=== PATIENT | male | born 1935 | race African-American/Black ===

== ENCOUNTER → 2016-08-31 | Outpatient (CLI) | payer MEDICARE, OTHER ==
--- NOTE | 2016-09-01 08:36 | XCELERA REPORT ---
[address] [address] Lower Extremity Arterial Evaluation Name: ANTONIO FINCH III Age: 81 yrs Gender: Male : 1935 Patient Status: Outpatient Patient Location: [facility] Study Date: 08/31/2016 10:49 AM Procedure: A color flow and duplex scan of the lower extremity arteries was performed bilaterally with velocity and waveform anaylsis. Ankle brachial indicies performed. Reason For Study: PVD Ordering Physician: MICHAEL TOBAR Performed By: Ana Steinberg Measurements and Calculations Right Left BANK GUARD PSV 146.1 84.9 cm/sec Prox PFA PSV 95.2 76.1 cm/sec Prox SFA PSV 88.6 43.2 cm/sec Mid SFA PSV -111.3 -45.2 cm/sec Dist SFA PSV -62.5 -35.4 cm/sec Prox Pop A PSV 121.3 19.3 cm/sec Prox MARGARET PSV -22.0 cm/sec Mid MARGARET PSV -11.6 cm/sec Dist MARGARET PSV 57.8 13.4 cm/sec Dist GAS SYSTEM OPERATOR PSV 77.0 33.2 cm/sec Carlos A Pedis PSV 20.0 -22.8 cm/sec Right Side Arterial Evaluation Normal velocity and biphasic waveforms noted from the Common Femoral artery to the infrageniculate vessels. 0-19% stenosis at the Femoral artery. Ankle Brachial index not obtainable, non compliant vessels. PPG's are mildly attenuated, multiphasic. Left Side Arterial Evaluation Normal velocity and biphasic waveforms noted in the Common Femoral artery. Biphasic in the Deep Femoral. Monophasic in the infrageniculate vessels. Retrograde in the Dorsalis Pedis. 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 Ankle Brachial index not obtainable, non compliant vessels. PPG's are severely attenuated. Interpretation Summary Mild hemodynamically significant lesions in the right lower extremity only, on duplex imaging, at rest. Severe hemodynamically significant lesions in the left lower extremity only, on duplex imaging, at rest. : MICHAEL TOBAR > Bakari Vyas
== END ==
LOC: SP 10:28
PROVIDERS: ATTEND Podiatrist Foot & Ankle Surgery
DX: I73.9 Peripheral vascular disease, unspecified (principal)
CPT/HCPCS: 93925